=== PATIENT | male | born 1970 ===

== ENCOUNTER 2024-09-19 05:09 | Day surgery (SDC) | payer OTHER ==
[2024-09-14 09:16] VITALS: BP 127/83
[2024-09-14 09:39] LABS: URINE APPEARANCE Clear; URINE BILIRRUBIN Negative (NEGATIVE); URINE BLOOD Negative; URINE COLOR Yellow; URINE KETONE Trace (NEGATIVE); URINE LEUKOCYTE Negative; URINE NITRATE Negative; URINE PROTEIN Negative (NEGATIVE); URINE UROBILINOGEN 0.2 E.U./dl
[2024-09-14 09:44] LABS: URINE BACTERIA 8.5 uL (0.0-1933); URINE WBC 8.4 uL (0.0-23.2)
[2024-09-14 10:18] LABS: URINE EPITHELIAL CELLS 0.9 uL (0.0-38.8); URINE GLUCOSE >=1000 MG/DL (NEGATIVE); URINE RBC 0.2 uL (0.0-20.8)
[2024-09-14 10:33] LABS: INR 0.99; PARTIAL THROMBOPLASTIN TIME 26.8 SECONDS (22.0-34.0); PROTHROMBIN TIME 10.8 SECONDS (9.0-11.5)
[~2024-09-19] VITALS: Ht 165.1 cm; Wt 73.5 kg
[~2024-09-19 05:09] MED LIST: CANDESARTAN CILE8 MG PO; FARXIGA5 MG PO
[2024-09-19] MEDS ORDERED: CEFAZOLIN SODIUM 1,000 MG VIAL ONE (08:01)
[2024-09-19] MEDS ORDERED: FAMOTIDINE/PF 20 MG/10 ML SYRINGE IV SCH (13:00)
[2024-09-19] MEDS ORDERED: MORPHINE SULFATE 4 MG/ML VIAL IV ONE (13:55)
[2024-09-19] MEDS ORDERED: FAMOTIDINE/PF 20 MG/2 ML VIAL ONE (14:52)
== END 2024-09-19 15:55 | disposition home or self-care (01) ==
LOC: CIR.AMB 05:09
PROVIDERS: ATTEND Specialist
DX: K42.9 Umbilical hernia without obstruction or gangrene (principal); Z88.0 Allergy status to penicillin